=== PATIENT | male | born 1955 | race Caucasian/White ===

== ENCOUNTER 2019-11-21 04:47 | Inpatient (IN) ==
[2019-11-01 18:00] LABS: Appearance Urine Clear (Clear); Bilirubin Urine Negative (Negative); Blood Urine Negative (Negative); Color Urine Yellow; Glucose Urine UA Negative (Negative); Ketones Urine Negative (Negative); Leukocyte Esterase Urine Negative (Negative); Nitrite Urine Negative (Negative); Protein Urine Negative (Negative); Specific Gravity Urine 1.008 (1.000-1.030); Urobilinogen Urine Negative (Negative)
[2019-11-01 18:10] LABS: Basophils # (auto) 0.03 K/uL (0-0.2); Basophils % (auto) 0.3 %; Eosinophils # (auto) 0.25 K/uL (0-0.5); Eosinophils % (auto) 2.3 %; Hematocrit (blood only) 33.8 % (42-52); Immature Granulocytes # (auto) 0.05 K/uL (0.00-0.02); Immature Granulocytes % (auto) 0.5 %; Lymphocytes # (auto) 1.41 K/uL (1.2-3.4); Lymphocytes % (auto) 13.2 %; Mean Corpuscular Hemoglobin 30.1 pg (25-34); Mean Corpuscular Hgb Conc 32.5 g/dL (32-36); Mean Corpuscular Volume 92.6 fL (80-100); Mean Platelet Volume 10.9 fL (7.4-10.4); Monocytes # (auto) 1.13 K/uL (0.11-0.59); Monocytes % (auto) 10.6 %; Neutrophils # (auto) 7.78 K/uL (1.4-6.5); Neutrophils % (auto) 73.1 %; Platelet Count 287 K/uL (130-400); RDW Coefficient of Variation 14.2 % (11.5-14.5); RDW Standard Deviation 47.4 fL (36.4-46.3); Red Blood Count 3.65 M/uL (4.7-6.1); White Blood Count 10.65 K/uL (4.8-10.8)
[2019-11-01 18:14] LABS: Partial Thromboplastin Ratio 1.1; Partial Thromboplastin Time 29.3 Seconds (21.0-31.0); Prothrombin Time 10.4 Seconds (9.0-12.0)
[2019-11-01 18:18] LABS: BUN Creatinine Ratio 19.3 (10-20); Blood Urea Nitrogen 48 mg/dl (7-18); Carbon Dioxide 23 mmol/L (21-32); Chloride 108 mmol/L (98-107); Est GFR (African American) 30.5; Est GFR (Non-African American) 26.4; Glucose 87 mg/dl (70-99); Potassium 4.3 mmol/L (3.5-5.1); Sodium 137 mmol/L (136-145)
[2019-11-02 06:39] LABS: Estimated Average Glucose 137 mg/dl; Hemoglobin A1C 6.4 % (4.5-5.6)
--- NOTE | 2019-11-06 10:30 | Anesthesiology Consultation ---
Date of Service November 06, 2019 Assessment & Plan (1) Encounter for pre-operative examination: Chart Review Chart Review: Pending: Refer to Additional Notes / Consult section Consults Requested medical & cardiac History Surgery Operation Date: 11/21/19 13:20 Proposed Procedures p Right Total Hip Revision, Abduction Repair, Possible Poly Exchange - Florin Howe MD Height/Weight Height: 5 ft 6 in Weight: 120.202 kg Allergies Allergy/AdvReac Type Severity Reaction Status Date / Time No Known Allergies Allergy Verified 10/26/19 13:41 Medications Home Medications Medication Instructions Recorded Confirmed Last Taken atorvastatin 40 mg PO HS #0 tab 02/21/14 10/26/19 07/04/18 21:30 nitroglycerin 1 tab SUBLINGUAL DIRECTED PRN 12/12/14 10/26/19 Unknown #0 btl amlodipine 10 mg PO QAM #0 tab 09/21/16 10/26/19 07/04/18 09:30 aspirin 81 mg PO QAM #0 03/06/18 10/26/19 07/05/18 06:30 famotidine 20 mg PO BID #0 tab 03/06/18 10/26/19 07/04/18 21:30 hydralazine 100 mg PO TID #0 tab 03/06/18 10/26/19 07/04/18 17:00 lisinopril 40 mg PO HS #0 tab 03/06/18 10/26/19 Unknown furosemide 2 tab PO BID 07/05/18 10/26/19 Unknown calcium carbonate [Tums] 200 mg PO BID PRN 08/14/19 10/26/19 Unknown metoprolol tartrate 75 mg PO BID 08/14/19 10/26/19 Unknown spironolactone 25 mg PO QAM 08/14/19 10/26/19 Unknown insulin glargine [Basaglar KwikPen 55 unit SUBCUT QAM 10/26/19 10/26/19 Unknown U-100 Insulin] meloxicam 15 mg PO QAM 10/26/19 10/26/19 Unknown metformin 1,000 mg PO BID 10/26/19 10/26/19 Unknown semaglutide [Ozempic] 0.5 mg SUBCUT WK 10/26/19 10/26/19 Unknown Past Medical History Medical History CAD (coronary artery disease) cardiac cath in 12/2013 coronary arteries with diffuse minor irregularities. no stents. treated with medical management Chronic back pain Diabetes mellitus, type 2 IDDM Dyslipidemia GERD (gastroesophageal reflux disease) controlled History of nephrolithiasis HTN (hypertension) per records Loose body in hip joint current issue Morbid obesity AMBROCIO (obstructive sleep apnea) BIPAP- advised to bring device AM DOS (patient seems reluctant/voiced understanding) Spinal stenosis, lumbar region without neurogenic claudication Past Family History Family History Sister Family history of diabetes mellitus Past Surgical History Surgical History History of colonoscopy (Resolved) History of difficult intubation Removal hardware, L3-L4 decompression, L3-L5 fusion: 07/05/18: "easy" with glidescope #4, ETT 8.0 at [facility]. No anesthesia complications per anesthesia progress note. History of lumbar fusion History of repair of rotator cuff (Resolved) right X2 History of total hip arthroplasty (Resolved) right Hx of total knee replacement (Resolved) LEFT Status post cardiac catheterization "[facility] [place] 01/22/2014 diffuse disease with small vessels, occluded OM and sub-branch of diagonal, no intervention" Social History Smoking Status: Former smoker Do You Dip or Chew Tobacco: No Smoking End Date: 40 PLUS YR AGO Hx Alcohol Use: No Hx Substance Use: No Testing Laboratory Results 11/01/19 13:01 11/01/19 13:01 PT 10.4 Seconds (9.0-12.0) 11/01/19 13:01 INR 1.0 (0.9-1.1) 11/01/19 13:01 APTT 29.3 Seconds (21.0-31.0) 11/01/19 13:01 Hemoglobin A1c 6.4 % (4.5-5.6) H 11/01/19 13:01 Urine Color Yellow 11/01/19 13:01 Urine Appearance Clear (Clear) 11/01/19 13:01 Urine pH 5.0 (4.5-7.5) 11/01/19 13:01 Ur Specific [place] 1.008 (1.000-1.030) 11/01/19 13:01 Urine Protein Negative (Negative) 11/01/19 13:01 Urine Glucose (UA) Negative (Negative) 11/01/19 13:01 Urine Ketones Negative (Negative) 11/01/19 13:01 Urine Nitrite Negative (Negative) 11/01/19 13:01 Ur Leukocyte Esterase Negative (Negative) 11/01/19 13:01 Blood Type O Positive 11/01/19 13:01 Antibody Screen NEGATIVE 11/01/19 13:01 Electrocardiogram Date: 10/01/19 Findings: + NSR @ (74 bpm) Stress Test Date: 12/07/18 Type: DSE Abnormal dobutamine stress echo consistent with ischemia ST changes of ischemia were seen more prominently in recovery than during exercise Mild periapical wall hypokinesis The patient reported his typical anginal chest discomfort with dobutamine infusion Patient developed 50 sec of a narrow complex SVT at approximately 200 beats per minute. The SVT self terminated with a short pause, followed immediately by a R on T phenomenon PVC that intitated 8 sec of polymorphous ventricular tachycardia During the SVT the patient had significant angina. The ECGs following SVT/polymorphous VT showed diffuse ST and T change of ischemia in multiple leads Cardiac Catheterization Date: 10/07/19 Findings: no normal There is significant coronary atherosclerosis concerning for significant obstructive disease.
--- NOTE | 2019-11-20 19:03 | History and Physical Report ---
DATE OF ADMISSION: 11/21/2019 CHIEF COMPLAINT: Chronic right hip pain. HISTORY OF PRESENT ILLNESS: This is a 64-year-old male patient of Dr. Howe'lore complaining of chronic right hip pain, longstanding, now progressively getting worse. He had a total hip replacement in 2015, developed chronic pain since then. A bone scan has revealed a possible poly loosening as well as abductor tear. The patient wished to proceed with a right total hip revision abductor repair and possible poly exchange. PAST MEDICAL HISTORY: Hypertension, hypercholesterolemia, sleep apnea with use of CPAP, diabetes mellitus with insulin, sciatica, kidney stones. SOCIAL HISTORY: Nonsmoker, nondrinker. PAST SURGICAL HISTORY: Left knee surgery, right hip surgery, back surgery. FAMILY HISTORY: Noncontributory. REVIEW OF SYSTEMS: Chronic right hip pain status post a total hip arthroplasty in 2014 with evidence of loosening per bone scan. MEDICATIONS: 1. Allopurinol 300 mg daily. 2. Ranitidine 20 mg 1 tablet twice daily. 3. Furosemide 40 mg 2 tablets twice daily. 4. Hydralazine 100 mg 3 times daily. 5. Meloxicam 15 mg daily. 6. Metformin 1000 mg 2 times daily. 7. Ozempic 0.25 mg injection weekly. 8. Spironolactone 25 mg daily. 9. Voltaren 1% topical gel twice daily to affected area. 10. Insulin as needed. 11. Amlodipine 10 mg daily. 12. Aspirin 81 mg daily. 13. Atorvastatin 40 mg daily. 14. Lisinopril 40 mg daily. 15. Nitrostat 0.4 mg sublingual tablets as needed. 16. Gabapentin 300 mg 1 tablet 3 times daily. 17. Metoprolol 50 mg 1/2 tablet twice daily. ALLERGIES: No known drug allergies. PHYSICAL EXAMINATION: GENERAL: Well-developed, well-nourished 64-year-old male in no acute distress. He is alert and oriented x3 and pleasant. HEENT: Normocephalic, atraumatic. Extraocular motions are intact. Pupils are equal and reactive to light. HEART: Regular rate and rhythm, no murmurs. LUNGS: Clear. ABDOMEN: Soft, nontender, bowel sounds present. EXTREMITIES: Right hip reveals pain with passive range of motion. He has diffuse tenderness throughout the hip. His leg lengths are equal. He has 5/5 strength with pain. Neurologically and neurovascularly he is intact in his right lower extremity. DIAGNOSES: 1. Right hip chronic pain with loose components status post right total hip replacement. 2. Hypertension. 3. Hypercholesterolemia. 4. Sleep apnea with the use of CPAP. 5. Diabetes mellitus with insulin. 6. Sciatica. 7. Kidney stones. PLAN: The patient was advised of his diagnosis. Indications, risks, benefits, postop course have all been reviewed. The patient wished to proceed with a right hip revision total hip arthroplasty abductor repair and possible poly exchange. Necessary consent forms, preoperative testing and clearances have been obtained.
[2019-11-21] MEDS ORDERED: GABAPENTIN 600 MG DOSE PO SCH (06:00)
[2019-11-21] MEDS ORDERED: CEFAZOLIN 3000MG 72.5 ML IV SCH (06:00)
[2019-11-21] MEDS ORDERED: ROPIVACAINE 0.5% HCL/PF 150 MG, BUPIVACAINE 0.5% MPF 30 ML, EPINEPHrine 30MG/30ML (OR U... INSTIL SCH (06:00)
[2019-11-21] MEDS ORDERED: METOCLOPRAMIDE HCL 10 MG TABLET PO SCH (06:00)
[2019-11-21] MEDS ORDERED: SODIUM CHLORIDE 0.9% 1,000 ML IV SCH (06:00)
[2019-11-21] MEDS ORDERED: ACETAMINOPHEN 500 MG TAB PO SCH (06:00)
[2019-11-21] MEDS ORDERED: TRANEXAMIC ACID 1,000 MG **IV Pre-op IV SCH (06:00)
[2019-11-21] MEDS ORDERED: TRANEXAMIC ACID 1,000 MG **IV Intra-op IV SCH (06:00)
[2019-11-21] MEDS ORDERED: FAMOTIDINE 20 MG TAB PO SCH (06:00)
[2019-11-21] MEDS ORDERED: BACITRACIN INJ 50,000 UNIT VIAL ONE ×2 (06:30→13:18)
[2019-11-21] MEDS ORDERED: ORTHO JOINT ANESTHETIC ONE (06:30)
[2019-11-21] MEDS ORDERED: BUPIVACAINE 0.5 % 5 MG/1 ML PF 10ML VIAL ONE (06:32)
[2019-11-21] MEDS ORDERED: fentaNYL citrate 100 MCG/2 ML VIAL ONE ×4 (06:39→13:17)
[2019-11-21] MEDS ORDERED: MIDAZOLAM HCL 1 MG/ML 2ML VIAL ONE (06:39)
--- NOTE | 2019-11-21 06:52 | History & Physical Bridge Note ---
Date of Service November 21, 2019 History & Physical Bridge Note I have examined the patient, reviewed the History & Physical and in the interval since the performance of the History & Physical I have noted the following changes of clinical significance: no changes noted
[2019-11-21] MEDS ORDERED: PHENYLEPHRINE 100MCG/ML 5ML SYR IV PRN (08:23)
[2019-11-21] MEDS ORDERED: ATROPINE SULFATE 0.1 MG/ML 10ML SYR IV PRN (08:23)
[2019-11-21] MEDS ORDERED: ONDANSETRON INJ 2 MG/ML 2 ML VIAL IV PRN ×2 (08:23→19:37)
[2019-11-21] MEDS ORDERED: MEPERIDINE HCL 25 MG/ML CARP IV PRN (08:23)
[2019-11-21] MEDS ORDERED: HYDROmorphone INJ 1 MG/ML SYRINGE IV PRN (08:23)
[2019-11-21] MEDS ORDERED: LABETALOL HCL IV 5 MG/ML 20ML IV PRN (08:23)
[2019-11-21] MEDS ORDERED: ePHEDrine sulfate 50 MG/ML AMP IV PRN (08:23)
[2019-11-21] MEDS ORDERED: GLYCOPYRROLATE 0.2 MG/ML VIAL ONE ×2 (08:28→10:14)
[2019-11-21] MEDS ORDERED: ROCURONIUM BROMIDE 10 MG/ML 5 ML VIAL ONE (08:28)
[2019-11-21] MEDS ORDERED: PROPOFOL IV EMULSION 10 MG/ML 20 ML VIAL IV ONE ×2 (08:28→13:34)
[2019-11-21] MEDS ORDERED: NEOSTIGMINE METHYLSULFATE 5 MG/5 ML SYR ONE (08:28)
[2019-11-21] MEDS ORDERED: LIDOCAINE HCL 2% 2 ML VIAL/AMP(20MG/ML) INFIL ONE ×2 (08:28→13:34)
--- NOTE | 2019-11-21 10:41 | Post Operative Brief Note ---
Immediate Post Op Note v1 Date of Surgery November 21, 2019 Pre & Post Diagnosis Operation Date: 11/21/19 07:00 Pre-Op Diagnosis: Chronic abductor tear, aseptic femoral loosening right hip replacement. Post-Op Diagnosis: Chronic abductor tear, aseptic femoral loosening right hip replacement I identified the patient and participated in the time-out.: Yes Procedure Operation Date: 11/21/19 07:00 Actual Procedures p Right Total Hip Revision, Abduction Repair, acetabular poly exchange, revision femoral components(Right) - Florin Howe MD Surgeon Florin Howe MD Director Underwriter Sales Zev Mckinney DO ,BRISEYDA Estevez Estimated Blood Loss 100 Findings Consistent with Post-Op Diagnosis Specimens None Drains Goode Catheter and Hemovac Drain Anesthesia Type General Regional Complications none Disposition Accompanied Patient To Recovery: No Overlapping Procedure I was present for: the critical portions of procedure.
--- NOTE | 2019-11-21 12:16 | XRay Report ---
XR hip 1V RT w pelvis CLINICAL HISTORY: IN PACU - A/P PELVIS and LATERAL HIP COMPARISON: AP pelvis performed 2014 DISCUSSION: There are postsurgical changes of a total right hip arthroplasty. There is a long stem fe moral component. The tip extends into the posterior lateral femoral cortex. Dedicated films of the fe mur are recommended to exclude a periprosthetic fracture. There is no dislocation. Overlying skin sta ples and surgical drains are evident. IMPRESSION: 1. A total right hip arthroplasty with a longstem femoral component. The tip extends into the posteri or lateral femoral cortex. Dedicated films of the femur are recommended in follow-up to exclude a per iprosthetic fracture ACT 112: Negative or not required by law. Electronically signed by: Gregory Cano M.D. 11/21/2019 12:14 PM
[2019-11-21] MEDS: fentaNYL citrate 100 MCG/2 ML VIAL IV PRN ×2 (12:55→13:15)
[2019-11-21] MEDS ORDERED: PHENYLEPHRINE HCL 10 MG/ML VIAL ONE ×2 (13:33→15:32)
[2019-11-21] MEDS ORDERED: SUCCINYLCHOLINE CHLORIDE 20 MG/ML 10 ML VIAL ONE (13:34)
--- NOTE | 2019-11-21 13:50 | Orthopedic Progress Note ---
Date of Service November 21, 2019 Assessment & Plan (1) Failed total hip arthroplasty: I have indicated the patient for revision right total hip arthroplasty femoral component, the risks, benefits, complications alternatives of the procedure were explained to the patient and detail which include however not limited to infections, blood clots, acute blood loss, injury to surrounding nerves, bone occluding fracture, vessels, soft tissue, arthrofibrosis, chronic pain, failure of the prosthesis, hip dislocation, leg length discrepancy, need for additional surgery, loss of limb and loss of life. Alternatives to the procedure include no surgery which could lead to worsening symptoms and clinical picture. The patient and wish to proceed with surgical intervention and informed sent was obtained at this time. Subjective The patient is a 64-year-old male who underwent revision right total hip arthroplasty secondary to aseptic loosening this a.m., patient tolerated procedure well and was without complications however postoperative x-rays taken in PACU demonstrated malposition of the femoral prosthesis with perforation of the posterior cortex of the proximal femur. The x-ray findings were discussed with the patient and in detail. The decision was made to return to the OR today for revision right total hip arthroplasty of the femoral component. Review of Systems 2 Review of Systems: All systems reviewed & are unremarkable except as noted in HPI & below Constitutional: as per Subjective / HPI Physical Exam Physical Exam: RLE NVSI +EHL/FHL/TA/GS SILT grossly, +2 DP pulse, compartments soft NT, dressing cdi. Results & Data Vital Signs (Past 12 Hours) Vital Signs Temp Pulse Pulse Resp BP Pulse Ox 11/21/19 13:25 75 20 113/54 L 94 11/21/19 13:15 79 20 127/52 L 98 11/21/19 13:05 65 12 109/53 L 99 11/21/19 12:55 77 12 144/66 H 99 11/21/19 12:45 78 14 140/71 99 11/21/19 12:30 70 12 136/61 99 11/21/19 12:25 72 13 119/57 L 98 11/21/19 12:15 70 15 108/57 L 97 11/21/19 12:05 74 16 101/48 L 98 11/21/19 11:55 36.4 C L 65 15 99/49 L 97 11/21/19 11:45 68 14 115/53 L 97 11/21/19 11:35 73 17 115/51 L 93 11/21/19 11:25 73 16 94/45 L 92 11/21/19 11:16 36.1 C L 74 17 101/45 L 93 11/21/19 05:28 37.2 C 81 18 150/69 H 95
[2019-11-21] MEDS ORDERED: CEFAZOLIN 250 MG/ML 1 GM VIAL ONE (14:23)
[2019-11-21] MEDS ORDERED: ALBUMIN HUMAN 5% 12.5 GM/250 ML VIAL IV ONE (15:03)
[2019-11-21 15:20] LABS: Hematocrit (blood only) 27.1 % (42-52); Mean Corpuscular Hemoglobin 30.3 pg (25-34); Mean Corpuscular Volume 91.2 fL (80-100); Platelet Count 305 K/uL (130-400); RDW Coefficient of Variation 14.2 % (11.5-14.5); RDW Standard Deviation 47.2 fL (36.4-46.3); Red Blood Count 2.97 M/uL (4.7-6.1); White Blood Count 20.44 K/uL (4.8-10.8)
[2019-11-21 15:24] LABS: Mean Corpuscular Hgb Conc 33.2 g/dL (32-36)
[2019-11-21] MEDS ORDERED: ePHEDrine sulfate 50 MG/ML SYR ONE (15:32)
[2019-11-21 15:40] LABS: Basophils # (auto) 0.03 K/uL (0-0.2); Basophils % (auto) 0.1 %; Eosinophils # (auto) 0.02 K/uL (0-0.5); Eosinophils % (auto) 0.1 %; Immature Granulocytes # (auto) 0.08 K/uL (0.00-0.02); Immature Granulocytes % (auto) 0.4 %; Lymphocytes # (auto) 1.03 K/uL (1.2-3.4); Monocytes # (auto) 1.61 K/uL (0.11-0.59); Monocytes % (auto) 7.9 %; Neutrophils # (auto) 17.67 K/uL (1.4-6.5); Neutrophils % (auto) 86.5 %
--- NOTE | 2019-11-21 16:21 | Post Operative Brief Note ---
Immediate Post Op Note v1 Date of Surgery November 21, 2019 Pre & Post Diagnosis Operation Date: 11/21/19 07:00 Pre-Op Diagnosis: Chronic abductor tear, aseptic femoral loosening right hip. Post-Op Diagnosis: Chronic abductor tear, aseptic femoral loosening right hip Operation Date: 11/21/19 14:35 Failed total hip femoral component malposition I identified the patient and participated in the time-out.: Yes Procedure Operation Date: 11/21/19 07:00 Actual Procedures p Right Total Hip Revision, Abduction Repair, acetabular poly exchange, revision femoral components(Right) - Florin Howe MD Operation Date: 11/21/19 14:35 Actual Procedures p Revision Femoral Stem Hip Right(Right) - Zev Mckinney DO Surgeon Zev Mckinney DO Apprentice Instrument Technician Kade Howe MD ,BRISEYDA Garcia Estimated Blood Loss 100 Findings Consistent with Post-Op Diagnosis Fluids 600cc LR 500 cc albumin Specimens None Drains Garcia Catheter (garcia catheter intact when patient arrived to the operating room, draining clear yellow urine) Anesthesia Type General Regional Complications none Disposition Disposition: Recovery Room Overlapping Procedure I was present for: the critical portions of procedure. I was immediately available: during the entire case. Back up surgeon: was not required during procedure.
--- NOTE | 2019-11-21 16:23 | Operative Report ---
Post Operative Report Pre & Post Diagnosis Operation Date: 11/21/19 07:00 Pre-Op Diagnosis: Chronic abductor tear, aseptic femoral loosening right hip. Post-Op Diagnosis: Chronic abductor tear, aseptic femoral loosening right hip Operation Date: 11/21/19 14:35 Pre-Op Diagnosis: Unilateral Primary Osteoarthritis, Right Hip Post-Op Diagnosis: Unilateral Primary Osteoarthritis, Right Hip I identified the patient and participated in the time-out.: Yes Procedure Operation Date: 11/21/19 07:00 Actual Procedures p Right Total Hip Revision, Abduction Repair, acetabular poly exchange, revision femoral components(Right) - Florin Howe MD Operation Date: 11/21/19 14:35 Actual Procedures p Revision Femoral Stem Hip Right(Right) - Zev Mckinney DO Surgeon Zev Mckinney DO Soft Sugar Cutter Kade Howe MD ,BRISEYDA Garcia Estimated Blood Loss 100 Findings Consistent with Post-Op Diagnosis Fluids 600 cc LR, 500 cc albumin Specimens None Drains Hemovac drain superficial to fascia x2 Anesthesia Type General Complications none Disposition Disposition: Recovery Room Indications The patient is a 64-year-old male who underwent revision right total hip arthroplasty secondary to aseptic loosening this a.m., patient tolerated procedure well and was without complications however postoperative x-rays taken in PACU demonstrated malposition of the femoral prosthesis with perforation of the posterior cortex of the proximal femur. The x-ray findings were discussed with the patient and in detail. The decision was made to return to the OR today for revision right total hip arthroplasty of the femoral component. I have indicated the patient for revision right total hip arthroplasty femoral component, the risks, benefits, complications alternatives of the procedure were explained to the patient and detail which include however not limited to infections, blood clots, acute blood loss, injury to surrounding nerves, bone occluding fracture, vessels, soft tissue, arthrofibrosis, chronic pain, failure of the prosthesis, hip dislocation, leg length discrepancy, need for additional surgery, loss of limb and loss of life. Alternatives to the procedure include no surgery which could lead to worsening symptoms and clinical picture. The patient and wish to proceed with surgical intervention and informed sent was obtained at this time. The patient is extreme/severely obese with a BMI of 42.7 which contributed to increased difficulty in the case, increased blood loss and added at least 30 additional minutes to surgical time. Description of Procedure COMPONENTS USED: [employer] JASON modular hip system: STS Distal [id number] stem, Proximal cone A - 60mm, high offset, femoral head 36+0, 1.8mm cables x 2 The patient was taken to the operating room, transferred to the OR table. Following induction of adequate general anesthetia the patient was placed in the lateral decubitus position with left hip down. Hip-pelvis holding padded holders were placed in appropriate position. A calf SCD was placed on his opposite leg. All extremities were padded. His right hip was prepped and draped in the usual sterile fashion. Time out was performed, patient identified, site mikala confirmed and pre-operative antibiotics given. A standard incision was made in line with previous lateral incision. A lateral hardinge approach was utilized. Dissection was carried through subcutaneous tissues down to the fascia aida, we dissected the plane between the fat and the fascia aida. Care was taken to remove all prior sutures. Next the fascia aida was divided longitudinally and dissected out the planes between the gluteus medius and the fascia aida. All sutures removed from the trochanter. The gluteus medius was then split in the direction of the previous split between anterior 40% and posterior 60%, this was split down to the minimus which was identified and reflected off of the scarred capsule around the joint. We also split the vastus lateralis for about 4 cm and then did a muscular capsular flap, elevated off the hip. A capsulectomy was made to expose the prosthesis and the acetabulum. The hip was then dislocated with flexion and external rotation and then we used the Bone Tamp to remove the ceramic head and then assessed the stem. Utilizing the stem disimpactor, the [employer] Red[employer] stem was removed. We noted a non displaced incomplete fracture in the anterior cortex extending from the neck cut to 4 cm distally. Next we placed two 1.8mm cables around the lesser trochanter and just below to precent propagation of the bone fracture. After cables were tightened, the tensioner was disconnected and the tensioning bit left in place. Next we turned our attention back to the proximal femur, carefully we removed previous sclerotic bone posterior and laterally utilizing payam and rasp. When we felt that sufficient amount of bone was taken, we placed the canal finder down the canal and c-arm fluoroscopy was utilized in a sterile manner to confirm placement of canal finder past the previous cortical defect. Next we performed distal reaming to a depth of 250mm to get a tight press fit in the canal. The patient had narrow canal, we increased distal reaming sequentially to size 12mm to a depth of 250mm. The quick connect was disengaged and distal reamer left in place. Next we performed proximal reaming to a size A 60. Next, the reamers were removed with T-handle and trial stem assembled on the back table. We gentle inserted the JASON modular stem with STS [id number], Proximal cone A 60mm with a high offset in appropriate version. A +0 neck length gave the best balance of the abductor tightness and leg length and stability. Then the trials were removed and copious irrigation performed with antibiotic solution with bacitracin. Access was gained to the acetabulum and trial liner removed. A final [id number] liner was inserted and impacted into place. Next access to the proximal femur was established, the final stem, JASON modular [id number], A 60mm body and a high offset was impacted into position till fully seated with a very tight press fit. The 36+0 mmceramic femoral head was impacted on the stem and was reduced to the acetabulum. Range of motion was stable through full flexion, internal rotation, adduction and extension and external rotation. A Betadine soak was performed as we prepared the medius for repair. The membrane that was on the greater trochanter was removed to get clean bleeding bony surface for repair. The 2 drains were brought out laterally and placed deep into the hip joint. The hip joint was copiously irrigated with pulsatile lavage antibiotic solution with bacitracin. We did use local anesthetic, [place] ortho mix in the deep capsule muscle and subcutaneous tissues for postoperative analgesia. After further irrigation, the medius was repaired with transosseous drill holes placed into the greater trochanter and #5 FiberWire sutures placed and then we used Víctor-Christopher suture technique to repair the medius anatomically using the #5 FiberWire. Then we also used a reinforcement with lateral row fixation with #2 Fiberwire and #1 Vicryl [id number] sutures. The split closed proximally with [id number] #1 Vicryl sutures and the vastus lateralis closed with [id number] #2 FiberWire and [id number] #1 Vicryl sutures. We tested the hip repair by adducting the knee to his opposite knee and flexion and extension that the repair was secured. Then the fascia aida was repaired with [id number] #1 Vicryl sutures. Subcutaneous tissue closed with 2-0 Vicryl sutures, skin closed with brooke. Sterile dressings, drain sponges and Prevena incisional vac were applied. The patient tolerated the procedure well and was brought to the PACU in stable condition. Due to the complex nature of the procedure, the entire surgery was performed with the operational assistance of Dr. Kade Cox and Jae Lee PA-C. The learning support assistant, under direct supervision, was involved in the actual performance of all aspects of the surgical procedure including patient positioning, approach, hemostasis, tissue retraction, instrument management and wound closure. I attest to the content of the Intraoperative Record and any orders documented therein. Any exceptions are noted below.
--- NOTE | 2019-11-21 16:24 | Operative Report ---
Post Operative Report Pre & Post Diagnosis Operation Date: 11/21/19 07:00 Pre-Op Diagnosis: Chronic abductor tear, aseptic femoral loosening right hip. Post-Op Diagnosis: Chronic abductor tear, aseptic femoral loosening right hip Operation Date: 11/21/19 14:35 Pre-Op Diagnosis: Unilateral Primary Osteoarthritis, Right Hip Post-Op Diagnosis: Unilateral Primary Osteoarthritis, Right Hip I identified the patient and participated in the time-out.: Yes Procedure Operation Date: 11/21/19 07:00 Actual Procedures p Right Total Hip Revision, Abduction Repair, acetabular poly exchange, revision femoral components(Right) - Florin Howe MD Operation Date: 11/21/19 14:35 Actual Procedures p Revision Femoral Stem Hip Right(Right) - Zev Mckinney DO Surgeon Florin Howe MD, Rebrander Zev Mckinney DO ,BRISEYDA Estevez Estimated Blood Loss 100 Findings Consistent with Post-Op Diagnosis Specimens none Drains Hemovac drain Anesthesia Type General Complications none Disposition Disposition: Recovery Room Indications The patient is a 64 year old male with PSHx for right EVERARDO 12/[address] Wilson presents with complaints of chronic, painful right total hip. Work up pre- operatively demonstrated aseptic loosening of the femoral component with chronic abductor tear. The patient has failed outpatient conservative treatments to this point which included NSAIDs, PT/HEP. The patient's pain and limited function have progressed to the point where they severely hinder their activities of daily living and they no longer tolerate exercise programs. They are requesting to proceed with Revision total hip replacement surgery. The patient is extreme/severely obese with a BMI of 42.7 which contributed to increased difficulty in the case, increased blood loss and added at least 30 additional minutes to surgical time. Description of Procedure COMPONENTS USED: [employer] Redapt hip system: Femur size [id number], high offset, femoral head 36+4, liner [id number]. The patient was taken to the operating room, transferred to the OR table. Following induction of adequate general anesthetia the patient was placed in the lateral decubitus position with left hip down. Hip-pelvis holding padded holders were placed in appropriate position. A calf SCD was placed on his opposite leg. All extremities were padded. His right hip was prepped and draped in the usual sterile fashion. Time out was performed, patient identified, site mikala confirmed and pre-operative antibiotics given. A standard incision was made in line with previous lateral incision. A lateral hardinge approach was utilized. Dissection was carried through subcutaneous tissues down to the fascia aida, we dissected the plane between the fat and the fascia aida. Next the fascia aida was divided longitudinally and dissected out the planes between the gluteus medius and the fascia aida. This took some time to develop these planes and find the appropriate plane between the medius and the fascia aida and gluteus roberto muscle and medius muscle. Once this was fully developed, we did note that there was a failure of the repair over a distance of about 3-4 cm with the abductor repair being failed and sutures being ruptured. All sutures removed from the trochanter. The gluteus medius was then split in the direction of the previous split between anterior 40% and posterior 60%, this was split down to the minimus which was identified and reflected off of the scarred capsule around the joint. We also split the vastus lateralis for about 4 cm and then did a muscular capsular flap, elevated off the hip. A capsulectomy was made to expose the prosthesis and the acetabulum. The hip was then dislocated with flexion and external rotation and then we used the Bone Tamp to remove the ceramic head and then assessed the stem. There was gross loosening of the stem, which had shifted anterio-medially into varus. At this time, the bone that was growing around the edges of the implant proximally was removed using curved straight artist chisels and rongeur. Once the entire proximal stem was cleared of excess bone, we checked the stem and there was some significant micromotion so we proceeded to remove the stem. We used flexible osteotomes anterior and posterior to loosen the stem up. Utilizing the stem disimpactor, the [employer] stem was removed without bone loss. We then turned our attention to the acetabulum. Once adequate exposure was obtained, the liner was removed and trial liner placed. The acetabular component was well fixed and without signs of wear. Next we turned our attention to the proximal femur. We noted severely sclerotic bone proximally and pedestal distally at the tip of the previous stem. We used a drill right through the pedestal and then used the sequential reaming distally in the canal to get a tight press fit in the canal. Patient had narrow canal, so we did ream up to 13 mm to a depth of 190mm, which was very tight fit. The quick connect was disengaged and distal reamer left in place. Next we performed proximal reaming to a size 13mm. Next, the reamers were removed with T-handle and trial stem assembled on the back table. We gentle inserted a Redapt [id number] stem with a high offset with appropriate version. A +4 neck length gave the best balance of the abductor tightness and leg length and stability. Then the trials were removed and copious irrigation performed with antibiotic solution with bacitracin. Access was gained to the acetabulum and trial liner removed. A final [id number] liner was inserted and impacted into place. Next access to the proximal femur was established, the final stem which was the Redapt [id number] HO stem was impacted into position till fully seated with a very tight press fit. The 36+4 mmceramic femoral head was impacted on the stem and was reduced to the acetabulum. Range of motion was stable through full flexion, internal rotation, adduction and extension and external rotation. A Betadine soak was performed as we prepared the medius for repair. The membrane that was on the greater trochanter was removed to get clean bleeding bony surface for repair. The 2 drains were brought out laterally and placed deep into the hip joint. The hip joint was copiously irrigated with pulsatile lavage antibiotic solution with bacitracin. We did use local anesthetic, [place] ortho mix in the deep capsule muscle and subcutaneous tissues for postoperative analgesia. After further irrigation, the medius was repaired with transosseous drill holes placed into the greater trochanter and #5 FiberWire sutures placed and then we used Víctor-Christopher suture technique to repair the medius anatomically using the #5 FiberWire. Then we also used a reinforcement with lateral row fixation with #2 Fiberwire and #1 Vicryl ssiqgu-[id number] sutures. The split closed proximally with [id number]-[id number] #1 Vicryl sutures and the vastus lateralis closed with ucdorn-[id number] #2 FiberWire and zucaol-ri-mlzsa #1 Vicryl sutures. We tested the hip repair by adducting the knee to his opposite knee and flexion and extension that the repair was secured. Then the fascia aida was repaired with cqdjuz-xn-letyq #1 Vicryl sutures. Subcutaneous tissue closed with 2-0 Vicryl sutures, skin closed with brooke. Sterile dressings, drain sponges and Prevena incisional vac were applied. The patient tolerated the procedure well and was brought to the PACU in stable condition. Due to the complex nature of the procedure, the entire surgery was performed with the operational assistance of Dr. Kade Cox and Mikala Bill PA-C. The as sistant, under direct supervision, was involved in the actual performance of all aspects of the surgical procedure including patient positioning, approach, hemostasis, tissue retraction, instrument management and wound closure. I attest to the content of the Intraoperative Record and any orders documented therein. Any exceptions are noted below.
[2019-11-21] MEDS ORDERED: ONDANSETRON INJ 2 MG/ML 2 ML VIAL ONE (16:38)
--- NOTE | 2019-11-21 16:39 | Fluoroscopy Report ---
FL hip RT 1V CLINICAL HISTORY: 64 years-old Male presenting with RIGHT TOTAL HIP. TECHNIQUE: 11 fluoroscopic image(s) recorded as part of an intraoperative procedure. COMPARISON: 11/21/2019 at 11:53 AM. FINDINGS/IMPRESSION: Fluoroscopic images of the right hip demonstrate revision of the total right hip arthroplasty with 2 cerclage wire fixation in the intertrochanteric and subtrochanteric regions. Please see surgical report for further details. Fluoroscopy dosage (mGy): 8.87. Fluoroscopy time: 36.0 seconds. Number or time of high level fluoroscopy (HLF), digital spot, or digital subtraction images: 0. ACT 112: Negative or not required by law. Electronically signed by: Rickie Paez M.D. 11/21/2019 4:37 PM
--- NOTE | 2019-11-21 18:32 | XRay Report ---
XR hip 1V RT w pelvis CLINICAL HISTORY: 64 years-old Male presenting with In PACU, post op R EVERARDO. TECHNIQUE: Single frontal view of the pelvis and crosstable lateral view of the right hip were obtain ed. COMPARISON: 11/21/2019 at 11:53 AM. FINDINGS: There has been interval surgical revision of the prior total right hip arthroplasty. The femoral stem component is now appropriately located within the medullary cavity. No periprosthetic fracture. No m alalignment. 2 cerclage wire fixation of the intertrochanteric and subtrochanteric regions of the rig ht femur now in place. Surgical drains also in place. Overlying skin brooke and soft tissue emphysem a again evident. The acetabular component is normal-appearing. Partially visualized lumbosacral fusio n hardware. Degenerative changes of the left hip may be present. Bony pelvis grossly intact. IMPRESSION: Expected postsurgical changes status post revision and cerclage wire fixation of the total right hip arthroplasty. No malalignment. ACT 112: Negative or not required by law. Electronically signed by: Rickie Paez M.D. 11/21/2019 6:31 PM
[2019-11-21 19:05] LABS: Hematocrit (blood only) 23.6 % (42-52); Hemoglobin 7.8 g/dL (14.0-18.0)
[2019-11-21] MEDS ORDERED: SODIUM CHLORIDE 0.9% 250 ML IV PRN (19:10)
--- NOTE | 2019-11-21 19:36 | Anesthesiology Progress Note ---
Date of Service November 21, 2019 Anesthesia Post Procedure Vital Signs Vital Signs: Temp Pulse Pulse Resp BP BP Pulse Ox 11/21/19 19:15 36.2 C L 78 14 116/51 L 94 11/21/19 19:05 78 15 122/51 L 93 11/21/19 18:55 78 16 124/53 L 91 11/21/19 18:45 85 20 134/62 91 11/21/19 18:35 88 21 94/49 L 93 11/21/19 18:25 85 14 102/52 L 92 11/21/19 18:15 85 13 109/54 L 92 11/21/19 18:05 77 15 99/57 L 94 11/21/19 17:55 75 15 103/52 L 95 11/21/19 17:49 36.0 C L 77 11 L 97/47 L 92 11/21/19 13:49 36.4 C L 76 20 134/64 94 11/21/19 13:25 75 20 113/54 L 94 11/21/19 13:15 79 20 127/52 L 98 11/21/19 13:05 65 12 109/53 L 99 11/21/19 12:55 77 12 144/66 H 99 11/21/19 12:45 78 14 140/71 99 11/21/19 12:30 70 12 136/61 99 11/21/19 12:25 72 13 119/57 L 98 11/21/19 12:15 70 15 108/57 L 97 11/21/19 12:05 74 16 101/48 L 98 11/21/19 11:55 36.4 C L 65 15 99/49 L 97 11/21/19 11:45 68 14 115/53 L 97 11/21/19 11:35 73 17 115/51 L 93 11/21/19 11:25 73 16 94/45 L 92 11/21/19 11:16 36.1 C L 74 17 101/45 L 93 11/21/19 05:28 37.2 C 81 18 150/69 H 95 Pain Intensity Right Hip: Pain Intensity: 2 Transfer of Care Handoff Completed per policy Notes Mental Status: alert / awake / arousable Patient Amnestic to Procedure: Yes Nausea / Vomiting: adequately controlled Pain: adequately controlled Airway Patency, RR, SpO2: stable & adequate BP & HR: stable & adequate Hydration State: stable & adequate Anesthetic Complications: no major complications apparent and Pt Satisfied with anesthetic care Notes: The patient underwent two surgeries today on his hip. He tolerated them both well although had to be treated with pressors and fluids to maintain normo tension. He is awake and comfortable. His vital signs are now stable but his last hgb was 7.8. He will receive one unit of PRBC on the floor. Dr. Howe was made aware. Sign out was given to Dr. Ann and the [facility] medical team will follow the patient on the floor.
[2019-11-21] MEDS ORDERED: MAGNESIUM HYDROXIDE SUSP 30 ML UDC PO PRN (19:37)
[2019-11-21] MEDS ORDERED: NITROGLYCERIN SL 0.4 MG/TAB TAB SL PRN (19:37)
[2019-11-21] MEDS ORDERED: NALOXONE HCL 0.4 MG/1 ML VIAL/CARP IV PRN (19:37)
[2019-11-21] MEDS ORDERED: CALCIUM CARBONATE 500 MG CHEWABLE TAB PO PRN (19:37)
[2019-11-21] MEDS ORDERED: HYDROmorphone INJ 0.5 MG/0.5 ML SYR IV PRN (19:37)
[2019-11-21] MEDS ORDERED: bisacodyL 10 MG SUPP PR PRN (19:37)
[2019-11-21] MEDS ORDERED: INSULIN GLARGINE SOLOSTAR 100 UNITS/ML 3 ML PEN SC STA (20:08)
[2019-11-21] MEDS ORDERED: PHARMACY GLYCEMIC MGMT CONSULT PRN (20:25)
[2019-11-21] MEDS ORDERED: lisinopriL 40 MG TAB PO SCH (21:00)
[2019-11-21] MEDS ORDERED: INSULIN ASPART 100 UNITS/ML 3 ML PEN SC SCH (21:00)
[2019-11-21] MEDS ORDERED: SODIUM CHLORIDE 0.9% 1000ML 1,000 ML IV SCH (21:00)
[2019-11-21] MEDS: INSULIN ASPART 100 UNITS/ML 3 ML PEN SC SCH ×2 (21:13→23:50)
[2019-11-21] MEDS: ATORVASTATIN 40 MG TAB PO SCH (21:19)
[2019-11-21] MEDS: DOCUSATE SODIUM 100 MG CAP PO SCH (21:19)
[2019-11-21] MEDS: SENNA 8.6 MG TAB PO SCH (21:20)
[2019-11-21] MEDS: ACETAMINOPHEN 500 MG TAB PO SCH (21:21)
[2019-11-21] MEDS: FAMOTIDINE 20 MG TAB PO SCH (21:22)
[2019-11-21] MEDS ORDERED: Nursing to Pharmacy Communication ONE (21:58)
--- NOTE | 2019-11-21 22:35 | History and Physical Report ---
DATE OF ADMISSION: 11/21/2019 CHIEF COMPLAINT: Status post hip surgery. HISTORY OF PRESENT ILLNESS: This is a 64-year-old male with past medical history significant for type 2 diabetes, obstructive sleep apnea, CAD, hypertension, chronic diastolic CHF, morbid obesity, chronic kidney disease stage III, status post right hip revision surgery. It was a long surgery and he required pressors and fluids to maintain normotension and postoperatively doing ok.. His hemoglobin was 7.8. He received 1 unit of PRBC and transferred to the floor. Currently, the patient is alert and oriented. Denies any complaints. He is hungry and he wants to eat. Denies any chest pain, no shortness of breath, no cough.Feeling some what cold. No fevers, no headache, no blurred vision, no nausea, no abdominal pain, resting comfortably and hemodynamically stable. ALLERGIES: No known drug allergies. PAST MEDICAL HISTORY: As mentioned above. PAST SURGICAL HISTORY: Left total knee arthroplasty, cardiac catheterization, colonoscopy, lumbosacral injection, removal of eyelid lesions, right rotator cuff repair. MEDICATIONS: The patient is on Lipitor 40 mg p.o. daily, Pepcid 20 mg p.o. b.i.d., NovoLog sliding scale, spironolactone 25 mg p.o. daily, Lopressor 75 mg p.o. b.i.d., hydralazine 100 mg p.o. t.i.d., Meloxicam 15 mg p.o. daily, Lasix 40 mg p.o. b.i.d., Lantus 55 units daily, lisinopril 40 mg p.o. daily, metformin 1000 mg p.o. b.i.d., semaglutide 0.5 mg under skin once a week, amlodipine 10 mg p.o. daily, gabapentin 300 mg p.o. daily, nitroglycerin 0.4 mg sublingual p.r.n., aspirin 81 mg p.o. daily. FAMILY HISTORY: Significant for father had prostate cancer and pacemaker. SOCIAL HISTORY: Single, former smoker, quit 45 years ago. No alcohol use, no drug use. REVIEW OF SYMPTOMS: As per HPI. Rest of review of systems negative. PHYSICAL EXAMINATION: GENERAL: The patient is alert and awake, not in acute distress, obese. VITAL SIGNS: Temperature 36.4, pulse 97, respiratory rate 18, blood pressure 115/59, oxygen 93% on 4 liters. HEENT: No pallor, no icterus. NECK: No JVD, no neck masses, no carotid bruits. CARDIOVASCULAR: S1, S2, regular rate and rhythm, no murmur, no gallop. RESPIRATORY SYSTEM: Normal AP diameter. No accessory muscle use. No wheezing, no crackles. ABDOMEN: Soft, bowel sounds present, nontender. No distention. CENTRAL NERVOUS SYSTEM: Alert and oriented. Obeys simple commands. Moves extremities. EXTREMITIES: Status post left total hip revision surgery, dressing and drain intact. No erythema. No edema seen. LABORATORY DATA: WBC 20, hemoglobin 7.8, hematocrit 23.6, platelets 305, blood glucose 189. Hip x-ray, total right hip arthroplasty with long stem femoral component,the tip extends into the posterior lateral femoral cortex . Dedicated films of the femur are recommended in followup to exclude a periprosthetic fracture. ASSESSMENT AND PLAN: This is a 64-year-old male status post right hip revision surgery. 1. Right hip revision surgery. The patient had a right total hip replacement surgery in 2014 presented with loosening components and also abductor tear status post surgery, that was a long surgery and during surgery he was hypotensive required pressors and fluids. Postoperatively, did fine. His hemoglobin was 7.8. He was given 1 unit of PRBC. Currently, he is hemodynamically stable. We will monitor him closely. Continue IV fluids for now and postop management as per Orthopedics. 2. Acute Blood loss anemia post op.hb 7.8. received one unit of prbc. Will follow labs in am. 3. History of coronary artery disease, he was preop cleared by Cardiology. His aspirin is on hold. Continue his Lopressor with holding parameters. Continue statin. Restart aspirin as soon as possible. 4. Diastolic congestive heart failure, currently getting fluids because of hypotension, holding Lasix, lisinopril. Monitor for volume overload. Restart Lasix as soon as possible. 5. Hypertension, at home on Lopressor 25 b.i.d., Aldactone 25 daily, Lasix 40 b.i.d., lisinopril 40 mg daily and hydralazine 100 mg t.i.d. and amlodipine 10mg daily. Holding lisinopril and Lasix to restart when blood pressure comes up. 6. Obstructive sleep apnea on BiPAP at bedtime. 7. Chronic kidney disease stage III, baseline creatinine 2-2.4 as per outpatient labs. We will follow his labs. 8. Diabetes. We will continue his Lantus in the morning and insulin sliding scale. Hold his metformin. Monitor blood pressure closely. 9. Deep venous thrombosis prophylaxis, sequential compression devices. DISPOSITION: As per Orthopedics. MTDD
--- NOTE | 2019-11-21 23:14 | Orthopedic Progress Note ---
Date of Service November 21, 2019 Assessment & Plan (1) Failed total hip arthroplasty: s/p Revision Right EVERARDO -ancef x 24 -DVT ppx: SCDs, TEDs, Xarelto -PWB RLE -Assisted device/walker at all times -Abduction precautions -am labs -PO XR demonstrates well aligned well fixed prothesis without fracture/dislocation -DC planning Subjective Post Operative Progress Note Patient seen sitting up in bed, comfortable, denies complaints, pain well controlled, no acute issues. Review of Systems Review of Systems: All systems reviewed & are unremarkable except as noted in HPI & below Constitutional: as per Subjective / HPI Physical Exam Physical Exam: RLE NVSI +EHL/FHL/TA/GS SILT grossly, +2 DP pulse, compartments soft NT, dressing cdi. drain intact Constitutional: WD/WN, vitals as above Results & Data Vital Signs (Past 12 Hours) Vital Signs Temp Pulse Pulse Pulse Resp BP BP 11/21/19 22:27 37.1 C 108 H 18 11/21/19 22:18 36.3 C L 110 H 15 159/78 H 11/21/19 21:45 36.7 C 105 H 16 120/64 11/21/19 20:48 37.0 C 100 H 16 141/71 H 11/21/19 20:45 36.4 C L 95 H 16 123/70 11/21/19 20:31 36.6 C 96 H 15 132/62 11/21/19 20:16 36.4 C L 102 H 20 150/66 H 11/21/19 20:03 36.4 C L 97 H 18 11/21/19 20:02 36.4 C L 97 H 18 11/21/19 19:30 36.6 C 88 16 151/67 H 11/21/19 19:15 36.2 C L 78 14 116/51 L 11/21/19 19:05 78 15 122/51 L 11/21/19 18:55 78 16 124/53 L 11/21/19 18:45 85 20 134/62 11/21/19 18:35 88 21 94/49 L 11/21/19 18:25 85 14 102/52 L 11/21/19 18:15 85 13 109/54 L 11/21/19 18:05 77 15 99/57 L 11/21/19 17:55 75 15 103/52 L 11/21/19 17:49 36.0 C L 77 11 L 97/47 L 11/21/19 13:49 36.4 C L 76 20 11/21/19 13:25 75 20 11/21/19 13:15 79 20 11/21/19 13:05 65 12 11/21/19 12:55 77 12 11/21/19 12:45 78 14 11/21/19 12:30 70 12 11/21/19 12:25 72 13 11/21/19 12:15 70 15 11/21/19 12:05 74 16 11/21/19 11:55 36.4 C L 65 15 11/21/19 11:45 68 14 11/21/19 11:35 73 17 11/21/19 11:25 73 16 11/21/19 11:16 36.1 C L 74 17 BP Pulse Ox 11/21/19 22:27 150/73 H 96 11/21/19 22:18 94 11/21/19 21:45 94 11/21/19 20:48 93 11/21/19 20:45 94 11/21/19 20:31 94 11/21/19 20:16 93 11/21/19 20:03 159/59 H 93 11/21/19 20:02 93 11/21/19 19:30 90 11/21/19 19:15 94 11/21/19 19:05 93 11/21/19 18:55 91 11/21/19 18:45 91 11/21/19 18:35 93 11/21/19 18:25 92 11/21/19 18:15 92 11/21/19 18:05 94 11/21/19 17:55 95 11/21/19 17:49 92 11/21/19 13:49 134/64 94 11/21/19 13:25 113/54 L 94 11/21/19 13:15 127/52 L 98 11/21/19 13:05 109/53 L 99 11/21/19 12:55 144/66 H 99 11/21/19 12:45 140/71 99 11/21/19 12:30 136/61 99 11/21/19 12:25 119/57 L 98 11/21/19 12:15 108/57 L 97 11/21/19 12:05 101/48 L 98 11/21/19 11:55 99/49 L 97 11/21/19 11:45 115/53 L 97 11/21/19 11:35 115/51 L 93 11/21/19 11:25 94/45 L 92 11/21/19 11:16 101/45 L 93
[2019-11-21] MEDS: METOPROLOL TARTRATE 25 MG TAB PO SCH (23:45)
[2019-11-21] MEDS: CEFAZOLIN 2000MG 2,000 MG/15 ML SYR IV SCH (23:47)
[2019-11-21] MEDS: HydrALAZINE TAB 50 MG TAB PO SCH (23:48)
[2019-11-22] MEDS: INSULIN ASPART 100 UNITS/ML 3 ML PEN SC SCH ×5 (04:04→21:18)
[2019-11-22 06:03] LABS: Basophils # (auto) 0.03 K/uL (0-0.2); Basophils % (auto) 0.2 %; Eosinophils # (auto) 0.04 K/uL (0-0.5); Eosinophils % (auto) 0.3 %; Hematocrit (blood only) 25.5 % (42-52); Hemoglobin 8.7 g/dL (14.0-18.0); Immature Granulocytes # (auto) 0.05 K/uL (0.00-0.02); Immature Granulocytes % (auto) 0.4 %; Lymphocytes % (auto) 8.2 %; Mean Corpuscular Hemoglobin 31.1 pg (25-34); Mean Corpuscular Hgb Conc 34.1 g/dL (32-36); Mean Corpuscular Volume 91.1 fL (80-100); Mean Platelet Volume 9.7 fL (7.4-10.4); Monocytes % (auto) 11.2 %; Neutrophils # (auto) 10.64 K/uL (1.4-6.5); Neutrophils % (auto) 79.7 %; Platelet Count 206 K/uL (130-400); RDW Coefficient of Variation 14.6 % (11.5-14.5); RDW Standard Deviation 48.9 fL (36.4-46.3); White Blood Count 13.36 K/uL (4.8-10.8)
[2019-11-22] MEDS: ACETAMINOPHEN 500 MG TAB PO SCH ×3 (06:18→21:24)
[2019-11-22] MEDS: OXYCODONE HCL IR 5 MG TAB (IMMEDIATE RELEASE) PO PRN ×2 (06:32→13:07)
[2019-11-22 06:37] LABS: BUN Creatinine Ratio 17.9 (10-20); Calcium 7.8 mg/dl (8.5-10.1); Creatinine Clr Calc Pharmacy 43.6 ml/min; Est GFR (African American) 36.5; Est GFR (Non-African American) 31.5; Potassium 4.6 mmol/L (3.5-5.1)
--- NOTE | 2019-11-22 08:38 | Anesthesiology Progress Note ---
Date of Service November 22, 2019 Anesthesia Post Procedure Vital Signs Vital Signs: Temp Pulse Pulse Pulse Resp BP BP 11/22/19 04:12 37.3 C 96 H 18 11/21/19 23:18 37 C 110 H 14 153/78 H 11/21/19 22:27 37.1 C 108 H 18 11/21/19 22:18 36.3 C L 110 H 15 159/78 H 11/21/19 21:45 36.7 C 105 H 16 120/64 11/21/19 20:48 37.0 C 100 H 16 141/71 H 11/21/19 20:45 36.4 C L 95 H 16 123/70 11/21/19 20:31 36.6 C 96 H 15 132/62 11/21/19 20:16 36.4 C L 102 H 20 150/66 H 11/21/19 20:03 36.4 C L 97 H 18 11/21/19 20:02 36.4 C L 97 H 18 11/21/19 19:30 36.6 C 88 16 151/67 H 11/21/19 19:15 36.2 C L 78 14 116/51 L 11/21/19 19:05 78 15 122/51 L 11/21/19 18:55 78 16 124/53 L 11/21/19 18:45 85 20 134/62 11/21/19 18:35 88 21 94/49 L 11/21/19 18:25 85 14 102/52 L 11/21/19 18:15 85 13 109/54 L 11/21/19 18:05 77 15 99/57 L 11/21/19 17:55 75 15 103/52 L 11/21/19 17:49 36.0 C L 77 11 L 97/47 L 11/21/19 13:49 36.4 C L 76 20 11/21/19 13:25 75 20 11/21/19 13:15 79 20 11/21/19 13:05 65 12 11/21/19 12:55 77 12 11/21/19 12:45 78 14 11/21/19 12:30 70 12 11/21/19 12:25 72 13 11/21/19 12:15 70 15 11/21/19 12:05 74 16 11/21/19 11:55 36.4 C L 65 15 11/21/19 11:45 68 14 11/21/19 11:35 73 17 11/21/19 11:25 73 16 11/21/19 11:16 36.1 C L 74 17 BP Pulse Ox 11/22/19 04:12 136/72 93 11/21/19 23:18 94 11/21/19 22:27 150/73 H 96 11/21/19 22:18 94 11/21/19 21:45 94 11/21/19 20:48 93 11/21/19 20:45 94 11/21/19 20:31 94 11/21/19 20:16 93 11/21/19 20:03 159/59 H 93 11/21/19 20:02 93 11/21/19 19:30 90 11/21/19 19:15 94 11/21/19 19:05 93 11/21/19 18:55 91 11/21/19 18:45 91 11/21/19 18:35 93 11/21/19 18:25 92 11/21/19 18:15 92 11/21/19 18:05 94 11/21/19 17:55 95 11/21/19 17:49 92 11/21/19 13:49 134/64 94 11/21/19 13:25 113/54 L 94 11/21/19 13:15 127/52 L 98 11/21/19 13:05 109/53 L 99 11/21/19 12:55 144/66 H 99 11/21/19 12:45 140/71 99 11/21/19 12:30 136/61 99 11/21/19 12:25 119/57 L 98 11/21/19 12:15 108/57 L 97 11/21/19 12:05 101/48 L 98 11/21/19 11:55 99/49 L 97 11/21/19 11:45 115/53 L 97 11/21/19 11:35 115/51 L 93 11/21/19 11:25 94/45 L 92 11/21/19 11:16 101/45 L 93 Pain Intensity Right Hip: Pain Intensity: 1 Notes Mental Status: alert / awake / arousable Patient Amnestic to Procedure: Yes Nausea / Vomiting: adequately controlled Pain: adequately controlled Airway Patency, RR, SpO2: stable & adequate BP & HR: stable & adequate Hydration State: stable & adequate Anesthetic Complications: no major complications apparent
--- NOTE | 2019-11-22 08:39 | Orthopedic Progress Note ---
Date of Service November 22, 2019 Assessment & Plan (1) Failed total hip arthroplasty: POD #1, s/p Revision Right EVERARDO -ancef x 24 -DVT ppx: SCDs, TEDs, Xarelto -PWB RLE -Assisted device/walker at all times -Abduction precautions -am labs- Hgb 8.7 this AM post transfusion -PO XR demonstrates well aligned well fixed prothesis without fracture/dislocation -DC planning Subjective POD #1, Feeling tired. Denies SOB, CP, N/V Pain controlled well. Physical Exam Physical Exam: Right hip dressings c/d/i, no drainage. Drain in tact. Toes/ ankle mobile. No calf tenderness. A&Ox3. Results & Data Vital Signs (Past 12 Hours) Vital Signs Temp Pulse Pulse Resp BP BP Pulse Ox 11/22/19 04:12 37.3 C 96 H 18 136/72 93 11/21/19 23:18 37 C 110 H 14 153/78 H 94 11/21/19 22:27 37.1 C 108 H 18 150/73 H 96 11/21/19 22:18 36.3 C L 110 H 15 159/78 H 94 11/21/19 21:45 36.7 C 105 H 16 120/64 94 11/21/19 20:48 37.0 C 100 H 16 141/71 H 93 11/21/19 20:45 36.4 C L 95 H 16 123/70 94
[2019-11-22] MEDS ORDERED: COUGH DROP (SUGAR FREE) LOZ 24 LOZ/1 BOX BUCCAL ONE (08:43)
[2019-11-22] MEDS ORDERED: COUGH DROP (SUGAR FREE) LOZ 24 LOZ/1 BOX BUCCAL PRN (08:45)
[2019-11-22] MEDS: HydrALAZINE TAB 50 MG TAB PO SCH ×3 (08:48→20:19)
[2019-11-22] MEDS: METOPROLOL TARTRATE 25 MG TAB PO SCH ×2 (08:49→20:19)
[2019-11-22] MEDS: RIVAROXABAN 10 MG TABLET PO SCH (08:49)
[2019-11-22] MEDS: MULTIVITAMIN TAB PO SCH (08:50)
[2019-11-22] MEDS: DOCUSATE SODIUM 100 MG CAP PO SCH ×2 (08:50→20:19)
[2019-11-22] MEDS: SPIRONOLACTONE 25 MG TAB PO SCH (08:50)
[2019-11-22] MEDS: FAMOTIDINE 20 MG TAB PO SCH ×2 (08:51→20:19)
[2019-11-22] MEDS: AMLODIPINE BESYLATE 5 MG TAB PO SCH (08:51)
[2019-11-22] MEDS: INSULIN GLARGINE SOLOSTAR 100 UNITS/ML 3 ML PEN SC SCH ×2 (08:52→21:20)
[2019-11-22] MEDS: CEFAZOLIN 2000MG 2,000 MG/15 ML SYR IV SCH (08:58)
[2019-11-22] MEDS ORDERED: INSULIN GLARGINE SOLOSTAR 100 UNITS/ML 3 ML PEN SQ SCH (09:00)
--- NOTE | 2019-11-22 14:28 | Pharmacy Report ---
Glycemic Control Consultation - Date of Service November 22, 2019 - Scope Scope: Glycemic Pharmacist consulted by Dr [] on [date] for glycemic control and to write orders per [facility] inpatient glycemic control protocol - Objective Weight: 123.576 kg Accuchecks BSG (last 24hrs): 11/21/19 11/21/19 11/21/19 17:55 19:40 23:45 Glucose POC Glucose 179 H 189 H 196 H 11/22/19 11/22/19 11/22/19 03:58 05:53 08:18 Glucose 135 H POC Glucose 130 H 184 H 11/22/19 12:32 Glucose POC Glucose 190 H Laboratory Data (last 24hrs): 11/22/19 05:53 Potassium 4.6 Carbon Dioxide 25 Anion Gap 3.0 Creatinine 2.13 H Est Cr Clr Drug Dosing 43.6 HbA1c: Hemoglobin A1c 6.4 % (4.5-5.6) H 11/01/19 13:01 - Recent Pertinent Medications Outpatient Anti-diabetic Regimen: * Basaglar 55 units QAM, Metformin 1000 mg BID, Ozempic * A1c = 6.4 % 11/01/19 Risk Factors for Insulin Resistance: * Steroids: * Infection: * Pressors: * IVF: * Recent Surgery: POD #1 * Diet: T2DM * Mechanical Ventilation: - Assessment & Plan Assessment & Plan: ASSESSMENT: * Mr. Dunlap admitted post right hip revision. * Fasting this AM 184, with 21 units from previous night on board, patient r eceived additional 25 units this morning, will put pm scale on up to home full dose of 55 * Novolog started with parameters based on weight based stress of 2 PLAN FOR INPATIENT GLYCEMIC CONTROL: * Holding outpatient oral diabetes medications * Basal insulin * Lantus 25 units this AM * Scale for PM: * BSG <140: 20 units * BSG 140-180: 25 units * BSG >180: 30 units * Bolus insulin * NovoLog per scale ACHS or Q6hrs while NPO * Goal Range: Low 110 mg/dL - High 140 mg/dL * Correction Factor: 20 mg/dL/unit * Nutritional / Prandial insulin per carb ratio of 1 unit per 6 grams CHO consumed * Please note that the plan above was derived based on current level of insulin resistance and hospital stress. These recommendations are appropriate for inpatient admission only. Plan of care upon discharge will need to be reassessed to avoid potential outpatient hypo/hyperglycemia. Thank you.
[2019-11-22] MEDS: SENNA 8.6 MG TAB PO SCH (20:18)
[2019-11-22] MEDS: ATORVASTATIN 40 MG TAB PO SCH (20:19)
[2019-11-22] MEDS: TAMSULOSIN HCL 0.4 MG CAP PO SCH (20:22)
--- NOTE | 2019-11-22 21:22 | Hospitalist Progress Note ---
Date of Service November 22, 2019 Assessment & Plan (1) S/P revision of total hip: POD # 1. (2) CAD (coronary artery disease): No anginal symptoms. Resume aspirin when OK from surgical perspective. Continue metoprolol, statin. (3) HTN (hypertension): BP this morning 145/63. Continue metoprolol, amlodipine, lisinopril, hydralazine. (4) AMBROCIO (obstructive sleep apnea): BiPAP. (5) GERD (gastroesophageal reflux disease): Continue famotidine. (6) CKD (chronic kidney disease), stage III: Serum creatinine preop 2.47. Creatinine today = 2.13. Follow. (7) Diabetes mellitus, type 2: DM type 2 managed with metformin + insulin at home. Hgb A1C 6.4 on 11/01/19. Pharmacy consulted for glycemic management. Receiving Lantus + NovoLog per protocol. FBS today = 184. (8) Urinary retention: Urinary retention after Goode cath removed. Bladder scans / PRN straight caths ordered. Add Flomax HS. (9) Anemia: Preop Hgb 11.0. Hgb fell to 7.8 perioperatively. EBL 100 ml. Received 1 unit pRBC's. Probable acute blood loss anemia. Hgb today = 8.7. (10) DVT prophylaxis: Per Ortho protocol. Rivaroxaban ordered. (11) Encounter for consultation: Thank you for this consultation. We will follow the patient with you during their hospital stay. My cell # is [phone]. You can reach a member of the [facility] Medicine Team 23/05 via pager @ [phone]. Subjective Recheck for medical management. Patient seen in their room around 1550. Doing fairly well postoperatively. No chest pain, cough, SOB, nausea, vomiting. Passing flatus, but no stool. Goode removed; having some difficulty voiding. Pain fairly well-controlled. Review of Systems: Constitutional- no fever. Cardiac- no chest pain. Pulmonary- no cough or SOB. GI- as noted above - as noted above. Otherwise, as noted above. Physical Exam Constitutional: + obese; no acute distress Respiratory: no respiratory distress Auscultation: lungs clear to auscultation bilaterally Cardiovascular: Rate/Rhythm: regular rate and regular rhythm Extremities: no calf tenderness and no edema Gastrointestinal (Abdomen): normal bowel sounds, soft, nontender, no hepatosplenomegaly Skin: no rashes, warm and dry Psychiatric: Orientation: alert and oriented x 3 Results & Data Vital Signs (Past 12 Hours) Vital Signs Temp Pulse Pulse Resp BP BP Pulse Ox 11/22/19 20:15 96 H 156/73 H 11/22/19 14:53 37.5 C 87 18 146/70 H 94 11/22/19 13:00 89 136/72 93 11/22/19 11:54 11/22/19 11:42 36.8 C 86 18 144/69 H 96 Pulse Ox Pulse Ox Pulse Ox 11/22/19 20:15 11/22/19 14:53 11/22/19 13:00 11/22/19 11:54 93 91 86 L 11/22/19 11:42 Laboratory Results 11/22/19 05:53 11/22/19 05:53
[2019-11-23] MEDS: OXYCODONE HCL IR 5 MG TAB (IMMEDIATE RELEASE) PO PRN ×4 (01:33→17:51)
[2019-11-23] MEDS ORDERED: LIDOCAINE 2% JELLY 5 ML TUBE EXT ONE (02:00)
[2019-11-23 05:26] LABS: Basophils # (auto) 0.03 K/uL (0-0.2); Basophils % (auto) 0.2 %; Eosinophils # (auto) 0.07 K/uL (0-0.5); Eosinophils % (auto) 0.4 %; Hemoglobin 8.2 g/dL (14.0-18.0); Immature Granulocytes # (auto) 0.06 K/uL (0.00-0.02); Immature Granulocytes % (auto) 0.4 %; Lymphocytes # (auto) 0.99 K/uL (1.2-3.4); Mean Corpuscular Hemoglobin 29.8 pg (25-34); Mean Corpuscular Hgb Conc 32.8 g/dL (32-36); Mean Corpuscular Volume 90.9 fL (80-100); Mean Platelet Volume 9.9 fL (7.4-10.4); Monocytes # (auto) 1.71 K/uL (0.11-0.59); Monocytes % (auto) 10.4 %; Neutrophils # (auto) 13.64 K/uL (1.4-6.5); Neutrophils % (auto) 82.6 %; Platelet Count 209 K/uL (130-400); RDW Standard Deviation 49.8 fL (36.4-46.3); Red Blood Count 2.75 M/uL (4.7-6.1)
[2019-11-23 05:52] LABS: BUN Creatinine Ratio 15.7 (10-20); Calcium 7.8 mg/dl (8.5-10.1); Creatinine Clr Calc Pharmacy 44.4 ml/min; Est GFR (African American) 37.4; Est GFR (Non-African American) 32.3; Potassium 4.4 mmol/L (3.5-5.1)
[2019-11-23] MEDS: ACETAMINOPHEN 500 MG TAB PO SCH ×3 (06:40→21:08)
[2019-11-23] MEDS: HydrALAZINE TAB 50 MG TAB PO SCH ×3 (08:35→21:09)
[2019-11-23] MEDS: MULTIVITAMIN TAB PO SCH (08:36)
[2019-11-23] MEDS: DOCUSATE SODIUM 100 MG CAP PO SCH ×2 (08:36→21:09)
[2019-11-23] MEDS: METOPROLOL TARTRATE 25 MG TAB PO SCH ×2 (08:36→21:08)
[2019-11-23] MEDS: SPIRONOLACTONE 25 MG TAB PO SCH (08:36)
[2019-11-23] MEDS: FAMOTIDINE 20 MG TAB PO SCH ×2 (08:36→21:09)
[2019-11-23] MEDS: RIVAROXABAN 10 MG TABLET PO SCH (08:36)
[2019-11-23] MEDS: AMLODIPINE BESYLATE 5 MG TAB PO SCH (08:36)
[2019-11-23] MEDS: INSULIN ASPART 100 UNITS/ML 3 ML PEN SC SCH ×4 (08:41→21:12)
[2019-11-23] MEDS: INSULIN GLARGINE SOLOSTAR 100 UNITS/ML 3 ML PEN SC SCH (08:42)
[2019-11-23] MEDS: FUROSEMIDE 40 MG TAB PO SCH ×2 (08:58→17:48)
--- NOTE | 2019-11-23 10:18 | Orthopedic Progress Note ---
Date of Service November 23, 2019 Assessment & Plan (1) Failed total hip arthroplasty: POD #2, s/p Revision Right EVERARDO -ancef x 24 -DVT ppx: SCDs, TEDs, Xarelto -PWB RLE -Assisted device/walker at all times -Abduction precautions -am labs- Hgb 8.2 this AM. Asymptomatic and improved from prior to transfusion. -PO XR demonstrates well aligned well fixed prothesis without fracture/dislocation -DC planning--[facility] when a bed is available. Subjective States today has been a better day than yesterday. Was able to get from the bed to his chair. Still not able to ambulate much. Denies CP, SOB, LH. States he is tired but did not sleep well last night. States the plan has changed for discharge to go to [facility]. Physical Exam Constitutional: WD/WN, vitals as above Musculoskeletal: Gait: + antalgic gait (right side) Hip: + surgical inci stephany (right hip dressing is C/D/I ) and + surgical drain present (right hip: drained 100 cc total over 2 days.); hip normal to inspection, no deformity, no skin erythema and no ecchymosis Skin: no rashes, warm and dry Psychiatric: A+Ox3, euthymic affect Results & Data Vital Signs (Past 12 Hours) Vital Signs Temp Pulse Pulse Pulse Resp BP Pulse Ox 11/23/19 07:56 36.8 C 81 18 125/67 93 11/23/19 03:25 37.3 C 91 H 18 138/67 94 11/22/19 23:48 37.5 C 103 H 16 162/78 H 92 11/22/19 22:25 90 19 93 Laboratory Results Laboratory Tests 11/22/19 11/23/19 11/23/19 05:53 05:05 05:05 WBC 16.50 H Hgb 8.7 L 8.2 L BUN 33 H Creatinine 2.09 H
--- NOTE | 2019-11-23 13:18 | Pharmacy Report ---
Pharmacy Glycemic Short Note 2 - Date of Service November 23, 2019 - Glycemic Short BSG Results (Last 24 hours): 11/22/19 11/22/19 11/23/19 17:35 20:39 01:41 Glucose POC Glucose 223 H 178 H 186 H 11/23/19 11/23/19 11/23/19 05:05 08:14 12:18 Glucose 191 H POC Glucose 182 H 261 H 11/23/19 12:21 Glucose POC Glucose 234 H OUTPATIENT ANTIDIABETIC REGIMEN: * Basaglar 55 units SQ daily * Metformin 1000mg PO BID * Ozempic 0.5mg SQ weekly ASSESSMENT: * POD #2, s/p Revision Right EVERARDO * Patient received 82 units of insulin yesterday * 50 units of basal insulin * 32 units of prandial/correctional insulin * BSGs ranging 178-261mg/dl over the past 24hrs * Risk factors for insulin resistance are constant over the past 24hrs * Now POD # 2 s/p surgery * Anticipating insulin regimen will need increased for the next 24hrs d/t : * AM Fasting BSG = 191mg/dl therefore Basal insulin needs to be increased, will place patient back on home dose * Post-prandial BSGs are elevated/BSGs rise throughout the day therefore Tighten CF/CR PLAN FOR INPATIENT GLYCEMIC CONTROL: * Hold outpatient oral diabetes medications * Basal insulin * Lantus 55 units SQ daily * Bolus insulin * NovoLog per scale ACHS or Q6hrs while NPO * Goal Range: Low 110 mg/dL - High 140 mg/dL * TIGHTEN: Correction Factor: 15 mg/dL/unit * TIGHTEN: Nutritional / Prandial insulin per carb ratio of 1 unit per 4 grams CHO consumed PLAN FOR DISCHARGE: * A1c 6.4% at goal, no changes recommended at this time.
[2019-11-23] MEDS ORDERED: LIDOCAINE 2% JELLY 5 ML TUBE ONE (14:31)
--- NOTE | 2019-11-23 20:57 | Hospitalist Progress Note ---
Date of Service November 23, 2019 Assessment & Plan (1) S/P revision of total hip: POD # 2. (2) CAD (coronary artery disease): No anginal symptoms. Resume aspirin when OK from surgical perspective. Continue metoprolol, statin. (3) HTN (hypertension): BP this morning 125/67. Continue metoprolol, amlodipine, lisinopril, hydralazine. (4) AMBROCIO (obstructive sleep apnea): BiPAP as tolerated. (5) GERD (gastroesophageal reflux disease): Continue famotidine. (6) CKD (chronic kidney disease), stage III: Serum creatinine preop 2.47. Creatinine today = 2.09. Follow. (7) Diabetes mellitus, type 2: DM type 2 managed with metformin + insulin at home. Hgb A1C 6.4 on 11/01/19. Pharmacy consulted for glycemic management. Receiving Lantus + NovoLog per protocol. FBS today = 184. (8) Urinary retention: Urinary retention after Goode cath removed. Bladder scans / PRN straight caths ordered. Added Flomax HS. Voiding more easily. (9) Anemia: Preop Hgb 11.0. Hgb fell to 7.8 perioperatively. EBL 100 ml. Received 1 unit pRBC's. Probable acute blood loss anemia. Hgb today = 8.2. (10) DVT prophylaxis: Per Ortho protocol. Rivaroxaban ordered. (11) Encounter for consultation: Thank you for this consultation. We will follow the patient with you during their hospital stay. My cell # is [phone]. You can reach a member of the [facility] Medicine Team 23/05 via pager @ [phone]. Subjective Recheck for medical management. Patient seen in their room around 1420. Doing fairly well. Having some postop pain. No chest pain, cough, SOB, nausea, vomiting. Passing flatus, but no stool yet. Voiding more easily. Could not tolerate BiPAP last night. Review of Systems: Constitutional- no fever. Cardiac- no chest pain. Pulmonary- no cough or SOB. GI- as noted above - as noted above. Otherwise, as noted above. Physical Exam Constitutional: + obese; no acute distress Respiratory: no respiratory distress Auscultation: lungs clear to auscultation bilaterally Cardiovascular: Rate/Rhythm: regular rate and regular rhythm Extremities: + edema (1+ pretibial); no calf tenderness Gastrointestinal (Abdomen): normal bowel sounds, soft, nontender, no hepatosplenomegaly Musculoskeletal: SCD's applied Skin: no rashes, warm and dry Psychiatric: Orientation: alert and oriented x 3 Results & Data Vital Signs (Past 12 Hours) Vital Signs Temp Pulse Pulse Resp BP BP Pulse Ox 11/23/19 15:21 37 C 86 18 150/70 H 91 11/23/19 11:57 36.8 C 81 18 125/67 93 Laboratory Results 11/23/19 05:05 11/23/19 05:05
[2019-11-23] MEDS: SENNA 8.6 MG TAB PO SCH (21:09)
[2019-11-23] MEDS: TAMSULOSIN HCL 0.4 MG CAP PO SCH (21:09)
[2019-11-23] MEDS: ATORVASTATIN 40 MG TAB PO SCH (21:09)
[2019-11-24] MEDS: OXYCODONE HCL IR 5 MG TAB (IMMEDIATE RELEASE) PO PRN ×2 (03:48→12:38)
[2019-11-24] MEDS: ACETAMINOPHEN 500 MG TAB PO SCH (06:16)
[2019-11-24 06:21] LABS: Basophils # (auto) 0.02 K/uL (0-0.2); Basophils % (auto) 0.2 %; Eosinophils # (auto) 0.38 K/uL (0-0.5); Eosinophils % (auto) 2.9 %; Hematocrit (blood only) 24.3 % (42-52); Immature Granulocytes # (auto) 0.08 K/uL (0.00-0.02); Immature Granulocytes % (auto) 0.6 %; Lymphocytes # (auto) 1.43 K/uL (1.2-3.4); Lymphocytes % (auto) 10.9 %; Mean Corpuscular Hemoglobin 29.9 pg (25-34); Mean Corpuscular Hgb Conc 32.9 g/dL (32-36); Mean Corpuscular Volume 90.7 fL (80-100); Mean Platelet Volume 9.7 fL (7.4-10.4); Monocytes # (auto) 1.54 K/uL (0.11-0.59); Monocytes % (auto) 11.8 %; Neutrophils # (auto) 9.63 K/uL (1.4-6.5); Neutrophils % (auto) 73.6 %; Platelet Count 209 K/uL (130-400); RDW Coefficient of Variation 14.9 % (11.5-14.5); RDW Standard Deviation 49.2 fL (36.4-46.3); Red Blood Count 2.68 M/uL (4.7-6.1); White Blood Count 13.08 K/uL (4.8-10.8)
--- NOTE | 2019-11-24 07:57 | Orthopedic Progress Note ---
Date of Service November 24, 2019 Assessment & Plan (1) Failed total hip arthroplasty: POD #3, s/p Revision Right EVERARDO -ancef x 24 -DVT ppx: SCDs, TEDs, Xarelto -PWB RLE -Assisted device/walker at all times -Abduction precautions -am labs- Hgb 8.2 yesterday. 8.0 this morning. Asymptomatic and improved from prior to transfusion -PO XR demonstrates well aligned well fixed prothesis without fracture/dislocation -DC planning--[facility] when a bed is available, possibly later today Subjective POD#3 revision right EVERARDO. In bed comfortable. Pain controlled. Pain with WB. No other complaints Review of Systems Review of Systems: All systems reviewed & are unremarkable except as noted in HPI & below Physical Exam 2 Physical Exam: Dressing to right leg is c/d/i. Distally n/v status and sensation intact. No calf tenderness. Toes mobile. Good dorsiflexion Results & Data Vital Signs (Past 12 Hours) Vital Signs Temp Pulse Resp BP Pulse Ox 11/23/19 23:28 37.7 C H 94 H 16 109/63 90
[2019-11-24] MEDS: FUROSEMIDE 40 MG TAB PO SCH (09:48)
[2019-11-24] MEDS: AMLODIPINE BESYLATE 5 MG TAB PO SCH (09:48)
[2019-11-24] MEDS: FAMOTIDINE 20 MG TAB PO SCH (09:49)
[2019-11-24] MEDS: SPIRONOLACTONE 25 MG TAB PO SCH (09:49)
[2019-11-24] MEDS: RIVAROXABAN 10 MG TABLET PO SCH (09:50)
[2019-11-24] MEDS: HydrALAZINE TAB 50 MG TAB PO SCH (09:50)
[2019-11-24] MEDS: METOPROLOL TARTRATE 25 MG TAB PO SCH (09:50)
[2019-11-24] MEDS: MULTIVITAMIN TAB PO SCH (09:51)
[2019-11-24] MEDS: DOCUSATE SODIUM 100 MG CAP PO SCH (09:51)
[2019-11-24] MEDS: INSULIN GLARGINE SOLOSTAR 100 UNITS/ML 3 ML PEN SC SCH (09:51)
[2019-11-24] MEDS: INSULIN ASPART 100 UNITS/ML 3 ML PEN SC SCH ×2 (09:52→12:02)
--- NOTE | 2019-11-24 16:27 | Hospitalist Progress Note ---
Date of Service November 24, 2019 Assessment & Plan (1) S/P revision of total hip: POD # 3. (2) CAD (coronary artery disease): No anginal symptoms. Resume aspirin when OK from surgical perspective. Continue metoprolol, statin. (3) HTN (hypertension): Continue metoprolol, amlodipine, lisinopril, hydralazine. (4) AMBROCIO (obstructive sleep apnea): BiPAP as tolerated. (5) GERD (gastroesophageal reflux disease): Continue famotidine. (6) CKD (chronic kidney disease), stage III: Serum creatinine preop 2.47. Creatinine 11/23 was 2.09. Follow. (7) Diabetes mellitus, type 2: DM type 2 managed with metformin + insulin at home. Hgb A1C 6.4 on 11/01/19. Pharmacy consulted for glycemic management. Receiving Lantus + NovoLog per protocol. FBS today = 185. (8) Urinary retention: Urinary retention after Goode cath removed. Bladder scans / PRN straight caths ordered. Added Flomax HS. Voiding more easily. (9) Anemia: Preop Hgb 11.0. Hgb fell to 7.8 perioperatively. EBL 100 ml. Received 1 unit pRBC's. Probable acute blood loss anemia. Hgb today = 8.0. (10) DVT prophylaxis: Per Ortho protocol. Rivaroxaban ordered. (11) Encounter for consultation: Thank you for this consultation. We will follow the patient with you during their hospital stay. My cell # is [phone]. You can reach a member of the [facility] Medicine Team 23/05 via pager @ [phone]. Subjective Recheck for medical management. Patient seen in their room around 0920. Doing fairly well. Less postop pain. No chest pain, cough, SOB, nausea, vomiting. Passing flatus, but no stool yet. Voiding more easily. Review of Systems: Constitutional- no fever. Cardiac- no chest pain. Pulmonary- no cough or SOB. GI- as noted above - as noted above. Otherwise, as noted above. Physical Exam Constitutional: + obese; no acute distress Respiratory: no respiratory distress Auscultation: lungs clear to auscultation bilaterally Cardiovascular: Rate/Rhythm: regular rate and regular rhythm Extremities: + edema (1+ pretibial); no calf tenderness Gastrointestinal (Abdomen): normal bowel sounds, soft, nontender, no hepa tosplenomegaly Skin: no rashes, warm and dry Psychiatric: Orientation: alert and oriented x 3 Results & Data Vital Signs (Past 12 Hours) Vital Signs Temp Pulse Pulse Resp BP BP Pulse Ox 11/24/19 12:08 36.8 C 94 H 87 18 129/60 125/67 92 11/24/19 08:17 36.8 C 87 18 129/60 92 Laboratory Results Laboratory Results - last 24 hr 11/21/19 11/23/19 11/23/19 05:24 17:03 20:32 WBC RBC Hgb Hct MCV MCH MCHC RDW Std Deviation RDW Coeff of Dipesh Plt Count MPV Immature Gran % (Auto) Neut % (Auto) Lymph % (Auto) Terry % (Auto) Eos % (Auto) Baso % (Auto) Immature Gran # (Auto) Neut # (Auto) Lymph # (Auto) Terry # (Auto) Eos # (Auto) Baso # (Auto) POC Glucose 123 H 163 H Crossmatch See Detail 11/24/19 11/24/19 11/24/19 06:06 08:23 11:58 WBC 13.08 H RBC 2.68 L Hgb 8.0 L Hct 24.3 L MCV 90.7 MCH 29.9 MCHC 32.9 RDW Std Deviation 49.2 H RDW Coeff of Dipesh 14.9 H Plt Count 209 MPV 9.7 Immature Gran % (Auto) 0.6 Neut % (Auto) 73.6 Lymph % (Auto) 10.9 Terry % (Auto) 11.8 Eos % (Auto) 2.9 Baso % (Auto) 0.2 Immature Gran # (Auto) 0.08 H Neut # (Auto) 9.63 H Lymph # (Auto) 1.43 Terry # (Auto) 1.54 H Eos # (Auto) 0.38 Baso # (Auto) 0.02 POC Glucose 185 H 229 H Crossmatch
--- NOTE | 2019-11-27 07:06 | Discharge Summary ---
Date of Service November 24, 2019 Principal Diagnosis Revision right total hip replacement, adbuctor repair Discharge Exam RLE NVSI +EHL/FHL/TA/GS SILT grossly, +2 DP pulse, compartments soft NT, dressing cdi. Constitutional WD/WN, vitals as above Discharge Data Allergies Allergy/AdvReac Type Severity Reaction Status Date / Time No Known Allergies Allergy Verified 11/21/19 05:21 Consultations 11/16/19 15:48 Consult Hospitalist Routine 11/21/19 19:37 Consult Internal Medicine Routine 11/22/19 08:00 Consult Case Management - Discharge Planning Routine Procedures Performed Operation Date: 11/21/19 07:00 Actual Procedures p Right Total Hip Revision, Abduction Repair, acetabular poly exchange, revision femoral components(Right) - Florin Howe MD Operation Date: 11/21/19 14:35 Actual Procedures p Revision Femoral Stem Hip Right(Right) - Zev Mckinney DO Ordered Studies 11/21/19 14:12 FL fluoroscopy <1hr Routine FL hip RT 1V Routine Hospital Course (1) Failed total hip arthroplasty: The patient is a 64 -year-old male who presents with 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 The patient's symptoms have progressed to the point where it has been difficult to perform even normal activities of daily living. I indicated the patient for a revision right total hip arthroplasty and abductor repair, the risks, benefits and complications of the procedure include but not limited to infection, bleeding, damage to bone, nerves, vessels, surrounding soft tissue, may develop blood clots, loss of function, leg length discrepancy, dislocation, failure of the components, loosening of the components, the need for additional surgery and . The patient wished to proceed with surgery at this time and informed consent was obtained. Hospital Course: On 11/21/19 the patient was taken to the operating room, adequate anesthesia administered and underwent a revision right total hip arthroplasty. The patient tolerated the procedure well and was taken to the PACU in stable condition. Post operative XRs in PACU demonstrates malpositioning of the femoral components with perforation of the tip into the posterior cortex of the femur. I indicated the patient for return to the OR for revision right total hip arthroplasty, the risks, benefits and complications of the procedure include but not limited to infection, bleeding, damage to bone, nerves, vessels, surrounding soft tissue, may develop blood clots, loss of function, leg length discrepancy, dislocation, failure of the components, loosening of the components, the need for additional surgery and . The patient wished to proceed with surgery at this time and informed consent was obtained. Post-operatively the patient was started on a DVT ppx medication and given appropriate IV antibiotics. Consults were placed to medical hopsitalist, physical therapy, occupational therapy and case management. On POD#1, the patient did well overnight and their pain was well controlled. Labs were drawn and the Hgb was [ ]. The patient progressed well with PT. Dressings were changed at this time and the incision was clean, dry and intact. On POD#2, On POD#3, The patients hospital stay was relatively uneventful and they were deemed stable by the orthopedic team and consultants to be discharged to [facility] rehab facility on 11/24/19. Discharge Instructions: Upon discharge the patient is to maintain partial weight bearing through their operative extremity with assistive device and adhere to abduction precautions at all times. They were instructed to keep the incision clean and dry at all times. The patient may shower but should not submerge the incision, avoid bathing, pools and hot tubes. The patient was given a script for pain medication and should take as instructed. The patient was given a script for DVT ppx Xarelto and should take as directed. The patient was instructed to not drive or travel for long distances until cleared to do so. If the patient develops any symptoms of fevers, chills, nausea, vomiting, increased redness, swelling, pain or drainage from the surgical site, they should notify the office and/or proceed to the nearest emergency room. The patient should follow up in 10-14 days after surgery for their routine post-operative follow-up appointment and should call the office to confirm the date and time. POD #3, s/p Revision Right EVERARDO -ancef x 24 -DVT ppx: SCDs, TEDs, Xarelto -PWB RLE -Assisted device/walker at all times -Abduction precautions -am labs- Hgb 8.2 yesterday. 8.0 this morning. Asymptomatic and improved from prior to transfusion -PO XR demonstrates well aligned well fixed prothesis without fracture/dislocation -DC planning--[facility] when a bed is available, possibly later today Discharge Plan Discharge Items Patient Disposition: Transfer Inpatient Rehab Fac Reason For Visit: Unilateral Primary Osteoarthritis, Right Hip Discharge Diagnosis: right hip osteoarthritis Activity: Per Instructions section Weightbearing: Right partial Non-emergency contact: Surgeon Call non-emergency contact if: your pain is not controlled and your pain is worsening Follow-up/Referrals: Camilo Pinto PA-C [Primary Care Provider] - Diet: Carb Consistent or DM2 Addtl Attending Provider Instructions: ACTIVITY RECOMMENDATIONS: SELF CARE INSTRUCTIONS AFTER TOTAL HIP REPLACEMENT Until the incision and soft tissues around your hip have healed, there is a possibility that the hip prosthesis could dislocate. A. Observe the following precautions to prevent dislocation: 1. Don't bend your hip greater than 90 degrees. 2. Avoid crossing your legs or ankles while standing or lying. 3. Sit with your feet placed 6 inches apart. 4. When sitting, keep your knees below your hips. Sit on a firm surface, avoid deep, soft chairs and couches. Use an elevated toilet seat in the bathroom. 5. Don't bend over at the waist. Use a long handled shoehorn and a sock aid to help you put on your shoes and socks. A licsw can help you pick pulling machine operator objects that are too high or too low to reach. 6. Keep car riding to a minimum for at least one month after surgery. B. You are to be partial weightbearing on the right lower extremity until instructed by Dr. Howe. Your balance may be shaky for a while. Use crutches or a walker until directed by your doctor. C. Use hand rails when walking on stairs. D. Wear low heeled shoes with non-slip soles. E. Be sure that your floors are free of things that could trip you - throw rugs, electrical cords, small objects. Avoid wet and waxed floors, especially with crutches and canes. F. Try to walk several times a day with rest periods between. G. Continue with all the exercises taught to you in the hospital. Again, make walking a part of your daily routine. H. It is okay to shower if minimal to no drainage from incision. No baths. Do not soak wound. I. Physical Therapy as instructed by your Physician. SPECIAL CARE INSTRUCTIONS: VERY IMPORTANT TO READ AND REVIEW A. You may still be at risk for phlebitis and blood clots. 1. Wear surgical stockings (GAEL hose) for one month, 20 hours daily, after surgery to improve circulation and reduce swelling. 2. Take Xarelto (blood thinning medications), as directed by your doctor. 3. Have a pro-time (blood test) drawn according to your doctor's i nstructions. B. We encourage and will assist you in choosing a home-health agency of your choice. Home health nurses and therapists will monitor your temperature, wound healing and progress in exercise and walking. Home health nurses may also draw the blood for the pro-time test. They may instruct you in decreasing or increasing the amount of Coumadin you take. C. You must take antibiotics before having dental work, bladder, bowel and other surgery. Your doctor will provide you with a permanent card to carry describing precautions. D. Call [facility] if you have a temperature of 101 or greater, redness or swelling around the incision, cloudy drainage from incision, or sudden increase in pain in your hip, not relieved by your regular pain medication. E. Please call the office at if you have any concerns or questions about your operation or recovery. FOLLOW UP VISIT: If appointment is not already scheduled: Please call [facility] to make a follow-up appointment for 2 weeks after your surgery at . Pending Studies at Discharge: No Stand-Alone Forms: My [facility] Skilled Items Patient informed of condition?: Yes DNR: No Discharge Level of Care: Acute rehab Communicable Disease: No Discharge Prognosis: Stable Lines: None Urinary Catheter: No Medications and DC Order Prescriptions: New acetaminophen 500 mg Tablet 1,000 mg PO Q8 Qty: 60 RF: 0 oxycodone 5 mg Tablet 5 - 10 mg PO .Q4H-6H MDD 6 PRN (Reason: pain) Qty: 30 RF: 0 Xarelto 10 mg Tablet 10 mg PO DAILY Qty: 30 RF: 0 Continued atorvastatin 40 mg Tablet 40 mg PO HS Qty: 0 RF: 0 nitroglycerin 0.4 mg Tablet, Sublingual 1 tab Sublingual DIRECTED PRN (Reason: Chest Pain) Qty: 0 RF: 0 amlodipine 10 mg Tablet 10 mg PO QAM Qty: 0 RF: 0 famotidine 20 mg Tablet 20 mg PO BID Qty: 0 RF: 0 hydralazine 100 mg Tablet 100 mg PO TID Qty: 0 RF: 0 lisinopril 40 MG tablet 40 mg PO HS Qty: 0 RF: 0 furosemide 20 mg Tablet 2 tab PO BID RF: 0 spironolactone 25 mg Tablet 25 mg PO QAM RF: 0 calcium carbonate [Tums] 200 mg calcium (500 mg) Tablet,Chewable 200 mg PO BID PRN (Reason: HEARTBURN) RF: 0 metoprolol tartrate 50 mg Tablet 75 mg PO BID RF: 0 Ozempic 0.25 mg or 0.5 mg(2 mg/1.5 mL) Pen Injector 0.5 mg SUBCUT WK RF: 0 metformin 1,000 mg Tablet 1,000 mg PO BID RF: 0 Basaglar KwikPen U-100 Insulin 100 unit/mL (3 mL) Insulin Pen 55 unit SUBCUT QAM RF: 0 Discontinued aspirin 81 mg Tablet,Delayed Release (Dr/Ec) 81 mg PO QAM Qty: 0 RF: 0 meloxicam 15 mg Tablet 15 mg PO QAM RF: 0 Discharge Orders: Discharge Order (Routine); Ordered 11/24/19 Ordered By: Hi Poe Admission Data Admit Date/Time: 11/21/19 11:25 Attending Provider: Florin Howe Admit Provider: Florin Howe Primary Care Provider: Camilo Pinto Other Providers: Hi Cordero ; [facility] Other Interventions: Discharge Summary Assessment (RN) Last Done: 11/24/19 12:08 DC Date/Time DO NOT enter until pt leaves facility: 11/24/19 13:20
== END 2019-11-24 13:20 | DRG 467 ==
LOC: ASU 04:47 → 3E 11:25